=== PATIENT | female | born 1995 | race Two or more races ===

== ENCOUNTER 2021-04-27 18:30 | Emergency (ER) | payer MEDICAID, OTHER ==
[~2021-04-27] VITALS: Ht 162.6 cm; Wt 68.1 kg
--- NOTE | 2021-04-27 20:53 | PHYS DOC ---
Past Medical History Past Medical History: No Pertinent History Past Surgical History: No Surgical History Smoking Status: Never Smoker Alcohol Use: None Drug Use: None General Adult EDM: Chief Complaint: OTHER COMPLAINTS HPI: HPI: Patient is a 26 year old female is here with report of having eosinophilic es ophagitis. She reports that a few days ago she ate something with cornstarch in it, and she reports that corn products are one of her triggers that causes reflux. She reports that she has throat pain. She reports 1 episode of vomiting which occurred yesterday. No retching or hematemesis. She reports esophageal discomfort. She is able to drink fluids. She has refused to eat f ood today. She is controlling secretions. She has kept liquids down. She denies bowel habit changes. Denies urinary symptoms. Denies fevers or chills. Denies dyspnea. Denies chest pressure. She came here from the emergency department at [facility], where she was offered a GI cocktail. She reports that she did not feel like drinking the entire 20 mL, but she drank a little over half of it and kept it down. She reports that they wanted to send her by ambulance here for a GI consult reportedly, but she decided to leave and she was formally discharged. I have received no phone call from [facility] emergency department or any physician or provider from there regarding this reported transfer. She is smiling, resting comfortably, appears to be in no distress. She has not vomited since yesterday. Review of Systems: Review of Systems: Constitutional: Denies fever or chills. [] Eyes: Denies change in visual acuity. [] HENT: Denies nasal congestion or sore throat. [] Respiratory: Denies cough or shortness of breath. [] Cardiovascular: Denies chest pain or edema. [] GI: Denies abdominal pain. Reports one episode of non-bloody, non-bilious vomiting. Denies bowel habit changes. : Denies urinary symptoms. Musculoskeletal: Denies back pain or joint pain. [] Integument: Denies rash. [] Neurologic: Denies headache, focal weakness or sensory changes. [] Psychiatric: Denies depression or anxiety. [] Heart Score: C/O Chest Pain: No Risk Factors: Risk Factors: DM, Current or recent (<one month) smoker, HTN, HLP, family history of CAD, obesity. Risk Scores: Score 0 - 3: 2.5% MACE over next 6 weeks - Discharge Home Score 4 - 6: 20.3% MACE over next 6 weeks - Admit for Clinical Observation Score 7 - 10: 72.7% MACE over next 6 weeks - Early Invasive Strategies Allergies: Allergies: Allergies Coded Allergies Type Severity Reaction Last Updated Verified No Known Drug Allergies 06/23/14 No Physical Exam: PE: Constitutional: Well developed, well nourished, no acute distress, non-toxic appearance. [] HENT: Normocephalic, atraumatic, oropharynx is patent and clear, no erythema, no edema, no exudate. Uvula is midline. Mucous membranes are moist. She is controlling secretions well. Voice is clear, not muffled. Eyes: Sclera are clear and anicteric. Neck: Normal range of motion, no tenderness, supple, no stridor. Trachea is midline. No tenderness, no adenopathy, thyroid is nontender and not enlarged. Cardiovascular:Heart rate regular rhythm, no murmur [] Lungs & Thorax: Bilateral breath sounds clear to auscultation [] Abdomen: Bowel sounds normal, soft, no tenderness, no masses, no pulsatile masses. No mass organomegaly. Skin: Warm, dry, no erythema, no rash. No jaundice. Extremities: No tenderness, no cyanosis, no clubbing, ROM intact, no edema. [] Neurologic: Alert and oriented X 3, is clear and fluent, no facial asymmetry, gait is steady. Psychologic: Appropriate, cooperative. EKG: EKG: [] Radiology/Procedures: Radiology/Procedures: [] Course & Med Decision Making: Course & Med Decision Making I have discussed the findings, differential diagnosis and plan of care with the patient. Based on her subjective complaints, as well as objective findings on physical exam and current presentation, I do not see any indication for further invasive exams, imaging, or labs at this time. She is well-hydrated appearing. She is controlling her secretions well. She has not vomited in over 24 hours. Denies any history of hematemesis. Admittedly has a history of esophagitis. I do not see any indication for emergent GI consultation at this time. I do recommend she contact her GI physician a primary care physician on Friday for follow-up. I instructed her she may take her Protonix twice daily for 3 days and resume her daily regimen. I recommended that she have bland diet. She should also be conscientious of any food triggers that may exacerbate her symptoms. I gave her very strict return precautions. There is no indication of any food bolus, esophageal obstruction or airway compromise at this time. She verbalizes understanding of instructions given. Did offer to prescribe antiemetics, but she declines. Victor Manuelon Disclaimer: Sandhya Disclaimer: This electronic medical record was generated, in whole or in part, using a voice recognition dictation system. Departure Departure Impression: Primary Impression: Eosinophilic esophagitis Disposition: HOME / SELF CARE / HOMELESS Condition: STABLE Referrals: HUSSAIN MATOS MD (PCP) Patient Instructions: Esophagitis Additional Instructions: You should continue taking your Protonix. For the next 3 days, you should take this twice a day, then resume daily treatment. Eat a bland diet. Avoid triggering foods. Return for any uncontrolled vomiting, dehydration, vomiting blood, fever 100.4 or higher, difficulty breathing, severe or changed chest pain, severe abdominal pain or any other concerns. Take your primary care physician and your GI doctor. You may take [id number] antihistamine, such as Benadryl as needed as well. SUKUMAR SRINIVASAN DO Apr 27, 2021 20:53
[2021-04-27 21:45] VITALS: BP 115/69
== END 2021-04-27 21:58 | disposition home or self-care (01) ==
LOC: ER 18:30
DX: K20.0 Eosinophilic esophagitis (principal)
CPT/HCPCS: 99285-25